=== PATIENT | female | born 1955 | race Caucasian/White ===

== ENCOUNTER 2023-02-28 08:53 | Emergency (ER) | payer OTHER, MEDICARE, BC ==
[~2023-02-28] VITALS: Ht 162.6 cm; Wt 64.9 kg
[~2023-02-28 08:53] MED LIST: METO50ER PO
[2023-02-28 09:02] VITALS: BP 154/84
== END 2023-02-28 10:33 | disposition home or self-care (01) ==
LOC: ER 08:53
DX: M25.561 Pain in right knee (principal); Z88.1 Allergy status to other antibiotic agents; Z88.2 Allergy status to sulfonamides; Z95.0 Presence of cardiac pacemaker; Z79.899 Other long term (current) drug therapy; W01.0XXA Fall on same level from slipping, tripping and stumbling without subsequent striking against object, initial encounter
CPT/HCPCS: 29505; 73562-RT; 99283-25

== ENCOUNTER 2024-08-01 13:47 | Day surgery (SDC) | payer MEDICARE, BC ==
[~2024-08-01] VITALS: Ht 162.6 cm; Wt 64.9 kg
[~2024-08-01 13:47] MED LIST changes: +Atropine Sulfate 0.1 MG/ML 10ML SYR ONE; +Glycopyrrolate 0.2 MG/ML 1MLVIAL ONE; +Lactated Ringer's 1,000 ML IV ONE; +Lidocaine 2% 5 ML SDV ONE; +Lidocaine HCl/Pf 1% 5 ML VIAL ONE; +Methylene Blue 1% 100 MG/10 ML VIAL ONE; +Ondansetron HCl 2 MG / ML 2ML Vial ONE; +ePHEDrine Sulfate 50 MG/ML 1ML Injection ONE
[2024-08-01] MEDS ORDERED: OMEP20ER (14:13)
[2024-08-01] MEDS ORDERED: Lactated Ringer's 1,000 ML IV ONE (15:15)
[2024-08-01] MEDS ORDERED: propofoL 50 ML IV ONE (15:18)
[2024-08-01] MEDS ORDERED: Lidocaine HCl/Pf 1% 5 ML VIAL ONE (15:18)
[2024-08-01 16:42] VITALS: BP 130/84
== END 2024-08-01 16:45 | disposition home or self-care (01) ==
LOC: ORSCSDS 13:47
PROVIDERS: Surgery
PROC: 0DBP8ZX Excision of Rectum, Via Natural or Artificial Opening Endoscopic, Diagnostic (ICD-10-PCS; principal; 2024-08-01 15:15)
DX: Z12.11 Encounter for screening for malignant neoplasm of colon (principal); K62.1 Rectal polyp; I10 Essential (primary) hypertension; I48.0 Paroxysmal atrial fibrillation; E78.5 Hyperlipidemia, unspecified; K21.9 Gastro-esophageal reflux disease without esophagitis; F41.9 Anxiety disorder, unspecified; Z79.899 Other long term (current) drug therapy; Z95.0 Presence of cardiac pacemaker
CPT/HCPCS: 88305; J0461; J2003; J2405; J2704; J7120; Q9968